=== PATIENT | male | born 1995 | race Caucasian/White ===

== ENCOUNTER 2021-01-20 15:52 | Emergency (ER) | payer SELFPAY ==
[2021-01-20 17:36] VITALS: BP 145/68; PULSE 61; RESP 18; TEMP 36.8; O2SAT 99; BMI 23.2
[2021-01-20 20:43] LABS: Add Urine Microscopic? NO; Charge for UA Resulting for Rev
[2021-01-20 20:49] LABS: Bilirubin Urine Neg (Negative); Blood Urine Neg (Negative); Glucose Urine UA Norm (Normal); Ketones Urine Negative (Negative); Leukocyte Esterase Urine Negative (Negative); Nitrate Urine Negative (Negative); Protein Urine Neg (Negative); Urine Appearance Clear (CLEAR); Urine Color Yellow (Yellow); Urobilinogen Urine Norm (Negative); pH Urine 5 (5-7)
[2021-01-20 21:00] LABS: Basophils # 0.1 10^3/uL (0.0-0.1); Basophils % 0.7 %; Eosinophils # 0.2 10^3/uL (0.0-0.8); Eosinophils % 2.1 %; Hematocrit 43.8 % (42.0-52.0); Hemoglobin 14.1 g/dL (11.7-16.6); Lymphocytes # 3.9 10^3/uL (0.8-4.8); Lymphocytes % 38.3 %; Mean Corpuscular HGB Conc 32.2 g/dL (30.0-36.0); Mean Corpuscular Hemoglobin 31.8 pg (28.0-34.0); Mean Corpuscular Volume 98.6 fL (80-94); Mean Platelet Volume 10.4 fL (7.4-10.4); Monocytes # 0.5 10^3/uL (0.2-0.9); Monocytes % 5.2 %; Neutrophils # 5.38 10^3/uL (1.8-7.7); Neutrophils % 53.4 %; Nucleated Red Blood Cells % 0 %; Platelet Count 281 10^3/cmm (130-400); Red Blood Count 4.44 10^6/uL (4.1-5.3); White Blood Count 10.1 10^3/uL (4.0-10.0)
[2021-01-20 21:19] LABS: Alanine Aminotransferase 12 U/L (0-41); Albumin Level 4.6 g/dL (3.5-5.2); Alkaline Phosphatase 92 IU/L (40-130); Anion Gap 15.2 (5-19); Aspartate Amino Transferase 18 U/L (0-40); Blood Urea Nitrogen 7 mg/dL (6-20); Carbon Dioxide 25 mmol/L (22-29); Chloride 106 mmol/L (98-107); Creatine Phosphokinase 180 U/L (39-308); Globulin 2.4 g/dL (1.3-4.6); Glomerular Filtration Rate 116.9 mL/min (90-130); Glucose 138 mg/dL (65-115); Osmolality Calculated 294 mOsm/kg (285-295); Potassium 4.2 mmol/L (3.5-5.1); Sodium 142 mmol/L (136-145); Total Bilirubin 0.2 mg/dL (0.15-1.2)
--- NOTE | 2021-01-20 21:46 | ED_ITS ---
HPI - General Adult General: Chief complaint: Back Pain/Injury Stated complaint: BACK PAIN, VARYING TEMP, OVERHEATED YESTERDAY Time Seen by Provider: 01/20/21 21:10 Source: patient Mode of arrival: ambulatory Limitations: no limitations History of Present Illness: HPI narrative: Patient is a 25-year-old male who presents to ED today with his significant other for concerns of possible heat exhaustion. Patient tells me they were working outside in the heat all day yesterday and today moving. He states they were lifting heavy things. He states since that time he has felt very weak and fatigued. He is having pain to the left lower back. He feels like the muscle is spasming. He also tells me he had an episode earlier today when he was on the couch and his upper extremities drawing up . Denies any seizure like activity. He reports that has resolved and he hasn't had any further issues with contractures since. Onset (ago): hour(s) Associated symptoms: Deny chest pain, dyspnea, headache(s), nausea, rash, palpitations, syncope or vomiting Treatments prior to arrival: none Review of Systems Const: Reports: fatigue; Denies: fever(s), chills, body aches, change in appetite, change in weight or night sweats Eyes: Denies: change in vision, blurry vision, photophobia, floaters or seeing flashes ENMT: Denies: throat pain, odynophagia or nasal discharge Card: Denies: chest pain, palpitations, irregular heart rhythm, edema, swelling of feet/ankles, lightheadedness, syncope, pre-syncope or dyspnea on exertion Resp: Denies: dyspnea GI: Denies: abdominal pain, nausea, vomiting or diarrhea : Denies: flank pain, dysuria or hematuria Musc: Reports: back pain; Denies: neck pain, extremity pain, extremity swelling, joint pain or joint swelling Skin/Breast: Denies: rash Neuro: Reports: other (extremity contractures-now resolved ); Denies: headache(s), numbness in extremities, weakness in extremities, sensory changes or dizziness Physical Exam Const: COMMON NORMALS: no acute distress, average body habitus, patient oriented x3, no limitations, healthy appearing, alert and well nourished GENERAL APPEARANCE: cooperative ORIENTATION/CONSCIOUSNESS: Yes awake, Yes oriented to person, Yes oriented to place and Yes oriented to time HENMT: COMMON NORMALS: normocephalic and atraumatic HEAD & SCALP: normocephalic and atraumatic Resp: COMMON NORMALS: normal respiratory effort and clear to auscultation bilaterally AUSCULTATION: clear to auscultation bilaterally Cardio: COMMON NORMALS: regular rate and regular rhythm RATE: regular rate RHYTHM: regular rhythm Back/Pelvis: BACK IMAGE (MALE): 1. TTP/muscle spasm Extremity: COMMON NORMALS: normal to inspection, full ROM, no clubbing, cyanosis or edema, no calf tenderness and no pedal edema GENERAL: Yes normal exam except as noted Neuro: MARIBELL COMA SCALE: document GCS findings Maribell coma scale eye opening: Spontaneous [place] coma scale verbal response: Orientated [place] coma scale motor response: Obey commands Maribell coma scale total score: 15 COMMON NORMALS: patient oriented x3, CN's II-XII intact bilaterally, moves all extremities, no focal motor deficits, no sensory deficits noted and gait normal SENSORIUM/ORIENTATION: Yes alert, Yes oriented to person, Yes oriented to place and Yes oriented to time Skin: COMMON NORMALS: no rashes or lesions noted GENERAL SKIN EXAM: no rashes or lesions noted Course Vital Signs: Vital signs: Vital Signs Temperature 98.2 F 01/20/21 17:36 Pulse Rate 81 01/20/21 21:55 Respiratory Rate 18 01/20/21 21:55 Blood Pressure 119/73 01/20/21 21:55 Pulse Oximetry 93 01/20/21 21:55 MDM - General Adult MDM Narrative: Medical decision making narrative: Patient clinically appears well. His vital signs are stable. Patient's labs including CBC, CMP, CPK, UA are unremarkable. Patient will be treated for his back spasm/back strain most likely from lifting. Recommend rest and pushing fluids for heat exhaustion/fatigue. Return to ED precautions given. Lab Data: Labs: Lab Results 01/20/21 01/20/21 01/20/21 Range/Units 20:26 20:26 20:38 WBC 10.1 H (4.0-10.0) 10^3/ uL RBC 4.44 (4.1-5.3) 10^6/u L Hgb 14.1 (11.7-16.6) g/dL Hct 43.8 (42.0-52.0) % MCV 98.6 H (80-94) fL MCH 31.8 (28.0-34.0) pg MCHC 32.2 (30.0-36.0) g/dL RDW 12.0 L (12.1-15.1) % Plt Count 281 (130-400) 10^3/c mm MPV 10.4 (7.4-10.4) fL Neut % (Auto) 53.4 % Lymph % (Auto) 38.3 % [place] % (Auto) 5.2 % Eos % (Auto) 2.1 % Baso % (Auto) 0.7 % Neut # (Auto) 5.38 (1.8-7.7) 10^3/u L Lymph # (Auto) 3.9 (0.8-4.8) 10^3/u L [place] # (Auto) 0.5 (0.2-0.9) 10^3/u L Eos # (Auto) 0.2 (0.0-0.8) 10^3/u L Baso # (Auto) 0.1 (0.0-0.1) 10^3/u L Nucleated RBC % (a uto) 0 % Nucleated RBCs # 0.0 /100WBC Sodium 142 (136-145) mmol/L Potassium 4.2 (3.5-5.1) mmol/L Chloride 106 (98-107) mmol/L Carbon Dioxide 25 (22-29) mmol/L Anion Gap 15.2 (5-19) BUN 7 (6-20) mg/dL Creatinine 0.8 (0.7-1.2) mg/dL GFR Calculation 116.9 (90-130) mL/min Glucose 138 H (65-115) mg/dL Calculated Osmolal ity 294 (285-295) mOsm/k g Calcium 9.0 (8.5-10.5) mg/dL Total Bilirubin 0.2 (0.15-1.2) mg/dL AST 18 (0-40) U/L ALT 12 (0-41) U/L Alkaline Phosphata se 92 (40-130) IU/L Creatine Kinase 180 (39-308) U/L Total Protein 7.0 (6.6-8.7) g/dL Albumin 4.6 (3.5-5.2) g/dL Globulin 2.4 (1.3-4.6) g/dL Urine Color Yellow (Yellow) Urine Appearance Clear (CLEAR) Urine pH 5 (5-7) Ur Specific Gravit y 1.020 (1.005-1.030) Urine Protein Neg (Negative) Urine Glucose (UA) Norm (Normal) Urine Ketones Negative (Negative) Urine Blood Neg (Negative) Urine Nitrate Negative (Negative) Urine Bilirubin Neg (Negative) Urine Urobilinogen Norm (Negative) mg/dL Ur Leukocyte Mrailynn ase Negative (Negative) Discharge Plan Discharge Patient Disposition: Home Clinical Impression: Back muscle spasm Heat exhaustion Qualifiers: Encounter type: initial encounter Qualified Code(s): T67.5XXA - Heat exhaustion, unspecified, initial encounter Condition: Stable Prescriptions: New cyclobenzaprine 10 mg tablet 10 mg PO TID Qty: 14 RF: 0 Discharge Orders: Discharge ED (Routine); Ordered 01/20/21 Ordered By: Concepcion Anglin Patient Instructions: Heat Cramps - Adult, Muscle Spasm (ED), Fatigue (ED), Opioid Safety Coding Level of Care Code ED Barley Steeper for Darryl Faye
[2021-01-20 21:55] VITALS: BP 119/73; PULSE 81; RESP 18; O2SAT 93
== END 2021-01-20 21:56 | disposition home or self-care (01) ==
PROVIDERS: Emergency Provider Physician Assistant
DX: T67.5XXA Heat exhaustion, unspecified, initial encounter (principal); M62.830 Muscle spasm of back
CPT/HCPCS: 80053; 81003; 82550; 85025; 99282

== ENCOUNTER 2023-11-10 09:42 | Emergency (ER) | payer SELFPAY ==
[2023-11-10 09:53] VITALS: BP 128/83; PULSE 92; RESP 22; TEMP 36.8; O2SAT 100
--- NOTE | 2023-11-10 09:55 | ED_ITS ---
HPI - Abdominal Pain 2 General: Chief Complaint: Abdominal Pain Stated Complaint: abd pain, sent by [facility] Time Seen by Provider: 11/10/23 09:50 Source: patient Mode of arrival: wheelchair Limitations: no limitations History of Present Illness: Patient is a 28-year-old male who presents to ED today along with his significant other for complaints of severe abdominal pain. Patient tells me last week while working at the [employer] he believes he had a heat stroke where he had an episode of dizziness and trouble breathing. He states I have not been right since . He states since then he has had progressively worsening abdominal pains over the past week-significantly worse over the past 72 hours accompanied by repetitive episodes of nausea and vomiting. He states he has not had much as far as bowel movements but admittedly has not ate much. He is still passing gas. No previous abdominal surgeries. He does report subjective fevers. Denies alcohol use stating he has not drank in 3 to 4 months-prior to this he was drinking daily. He does admit to marijuana use. MD elicited complaint: abdominal pain Pertinent past history: none Onset (ago): day(s) Pain Consistency: constant Severity: severe Pain scale (0-10): 10 Quality: stabbing and sharp Radiation: none Migration to: no migration Exacerbating factors: nothing Relieving factors: nothing Associated Symptoms: Reports fever(s) (subjective), nausea and vomiting; Denies chills, diarrhea, dysuria, hematochezia, hematuria, hematemesis and melena Review of Systems 2 Const: Reports: fever(s) (subjective) and night sweats; Denies: chills, body aches, fatigue or malaise Card: Denies: chest pain Resp: Denies: dyspnea GI: Reports: abdominal pain, nausea and vomiting; Denies: hematemesis, diarrhea, pain on defecation, rectal pain, hematochezia, melena or white/light colored stool : Denies: flank pain, difficulty urinating, dysuria or hematuria Musc: Denies: neck pain, back pain, extremity pain or joint pain Skin/Breast: Denies: rash Neuro: Denies: headache(s), numbness in extremities, weakness in extremities, sensory changes or dizziness Physical Exam 2 Const: COMMON NORMALS: average body habitus, patient oriented x3, no limitations, healthy appearing, alert and well nourished GENERAL APPEARANCE: cooperative and in distress (tearful, holding abdomen) HENMT: COMMON NORMALS: normocephalic and atraumatic HEAD & SCALP: normal to inspection, normocephalic and atraumatic FACE & SINUS: normal facial exam Eye: COMMON NORMALS: no scleral icterus Resp: COMMON NORMALS: normal respiratory effort and clear to auscultation bilaterally AUSCULTATION: clear to auscultation bilaterally Cardio: COMMON NORMALS: regular rate and regular rhythm RATE: regular rate RHYTHM: regular rhythm GI: COMMON NORMALS: Normal to inspection, nondistended, normoactive bowel sounds present, No hepatosplenomegaly present, no masses and no bruits I NSPECTION: Yes normal to inspection AUSCULTATION: Yes normoactive bowel sounds PALPATION: Yes Tenderness to palpation present (GI) (diffusely), Yes Guarding due to palpation present (GI), Yes Rigid due to palpation, Yes No hepatosplenomegaly present and Yes Other GI palpation findings present (negative heel tap, - rovsing's sign) : COMMON NORMALS: Yes no CVA tenderness BLADDER/KIDNEY EXAM: Yes no CVA tenderness Back/Pelvis: COMMON NORMALS: no CVA tenderness and thoracic and lumbar spine normal to inspection Extremity: GENERAL: Yes normal exam except as noted Neuro: MARIBELL COMA SCALE: document GCS findings Maribell coma scale eye opening: Spontaneous [place] coma scale verbal response: Orientated [place] coma scale motor response: Obey commands Maribell coma scale total score: 15 COMMON NORMALS: patient oriented x3, moves all extremities, no focal motor deficits and no sensory deficits noted SENSORIUM/ORIENTATION: Yes alert Skin: COMMON NORMALS: no rashes or lesions noted GENERAL SKIN EXAM: no rashes or lesions noted Course 2 Vital Signs: Vital signs: Vital Signs Temperature 98.2 F 11/10/23 09:53 Pulse Rate 74 11/10/23 10:53 Respiratory Rate 18 11/10/23 10:10 Blood Pressure 122/65 11/10/23 10:53 Pulse Oximetry 100 11/10/23 10:53 Oxygen Delivery Me thod Room Air 11/10/23 09:53 MDM - Abdominal Pain Medical Decision Making Patient's vital signs are normal. His blood work overall is unremarkable. He does have a mild white count of 15.25 most likely reactive from nausea and vomiting over the past 3 days. Chemistry overall is nonactionable. UA showing 2+ ketones. He was given a liter of fluids here. CT scan is essentially unremarkable. There is constipation. He does have a small amount of increased fluid in his distal small bowel. No obstruction. He is a habitual marijuana user. We did discuss the possibility of a hyperemesis cannabis syndrome. Patient was given medications here including Ativan and Haldol and upon reassessment he appears much improved in no acute distress. His abdomen reportedly feels much better. He states he is craving a cheeseburger. Patient will be allowed discharge. Will give prescriptions for Zofran and Ativan at home. Return to ED precautions given. Otherwise I would like him to follow-up with primary care. Differential Diagnosis Likely abdominal pain, acute appendicitis, diverticulitis, gastroenteritis, pancreatitis and small bowel obstruction Medical Records I reviewed the patient's medical records. Lab Data I reviewed the patient's lab results. 11/10/23 10:14 11/10/23 10:14 Labs/Radiology: Laboratory Results WBC 15.25 10^3/uL (3.29-11.43) H 11/10/23 10:14 RBC 4.95 10^6/uL (3.85-5.65) 11/10/23 10:14 Hgb 15.00 g/dL (11.27-16.99) 11/10/23 10:14 Hct 44.9 % (37-53) 11/10/23 10:14 MCV 90.7 fl (82-101) 11/10/23 10:14 MCH 30.3 pg (27-33) 11/10/23 10:14 MCHC 33.4 g/dL (30-55) 11/10/23 10:14 RDW 13.0 % (12.1-15.1) 11/10/23 10:14 Plt Count 446 10^3/cmm (157-399) H 11/10/23 10:14 MPV 8.9 fL (7.4-10.4) 11/10/23 10:14 Neut % (Auto) 77.9 % 11/10/23 10:14 Lymph % (Auto) 14.6 % 11/10/23 10:14 [place] % (Auto) 6.4 % 11/10/23 10:14 Eos % (Auto) 0.3 % 11/10/23 10:14 Baso % (Auto) 0.4 % 11/10/23 10:14 Neut # (Auto) 11.88 10^3/uL (1.8-7.7) H 11/10/23 10:14 Lymph # (Auto) 2.2 10^3/uL (0.8-4.8) 11/10/23 10:14 [place] # (Auto) 1.0 10^3/uL (0.2-0.9) H 11/10/23 10:14 Eos # (Auto) 0.0 10^3/uL (0.0-0.8) 11/10/23 10:14 Baso # (Auto) 0.1 10^3/uL (0.0-0.1) 11/10/23 10:14 Nucleated RBC % (auto) 0 % 11/10/23 10:14 Nucleated RBCs # 0.0 /100WBC 11/10/23 10:14 Sodium 135 mmol/L (136-145) L 11/10/23 10:14 Potassium 3.8 mmol/L (3.5-5.1) 11/10/23 10:14 Chloride 92 mmol/L (98-107) L 11/10/23 10:14 Carbon Dioxide 30 mmol/L (22-29) H 11/10/23 10:14 Anion Gap 16.8 (5-19) 11/10/23 10:14 BUN 13 mg/dL (6-20) 11/10/23 10:14 Creatinine 0.8 mg/dL (0.7-1.2) 11/10/23 10:14 GFR Calculation 114.3 mL/min (90-130) 11/10/23 10:14 Glucose 111 mg/dL (65-115) 11/10/23 10:14 Calculated Osmolality 281 mOsm/kg (285-295) L 11/10/23 10:14 Calcium 9.6 mg/dL (8.5-10.5) 11/10/23 10:14 Total Bilirubin 0.4 mg/dL (0.15-1.2) 11/10/23 10:14 AST 13 U/L (0-40) 11/10/23 10:14 ALT 9 U/L (0-41) 11/10/23 10:14 Alkaline Phosphatase 120 U/L (40-130) 11/10/23 10:14 Total Protein 8.0 g/dL (6.6-8.7) 11/10/23 10:14 Albumin 4.3 g/dL (3.5-5.2) 11/10/23 10:14 Globulin 3.7 g/dL (1.3-4.6) 11/10/23 10:14 Lipase 30 U/L (13-60) 11/10/23 10:14 Urine Color Yellow (Yellow) 11/10/23 10:50 Urine Appearance Clear (CLEAR) 11/10/23 10:50 Urine pH 7 (5-7) 11/10/23 10:50 Ur Specific [place] 1.010 (1.005-1.030) 11/10/23 10:50 Urine Protein Neg (Negative) 11/10/23 10:50 Urine Glucose (UA) Norm (Normal) 11/10/23 10:50 Urine Ketones 2+ (Negative) H 11/10/23 10:50 Urine Blood Neg (Negative) 11/10/23 10:50 Urine Nitrate Negative (Negative) 11/10/23 10:50 Urine Bilirubin Neg (Negative) 11/10/23 10:50 Urine Urobilinogen Neg mg/dL (Negative) 11/10/23 10:50 Ur Leukocyte Esterase Negative (Negative) 11/10/23 10:50 All radiology interpretation(s) finalized by discharge Discharge Plan Discharge Patient Disposition: Home Clinical Impression: Abdominal pain Qualifiers: Abdominal location: generalized Qualified Code(s): R10.84 - Generalized abdominal pain Condition: Stable Prescriptions: New ondansetron 4 mg tablet,disintegrating 4 mg PO Q8H PRN (Reason: nausea and vomiting) Qty: 14 0RF Ativan 1 mg tablet 1 mg sublingual Q8H PRN (Reason: nausea and vomiting) Qty: 9 0RF Discharge Orders: Discharge ED (Routine); Ordered 11/10/23 Ordered By: Concepcion Anglin Referrals: Silvia Condon FNP [Primary Care Provider] - Patient Instructions: Abdominal Pain (ED) Activity Restrictions/Additional Instructions: As we discussed your blood work and CT imaging today overall is not emergent. We did not find an exact etiology for your discomfort. We did speak about possible marijuana use being the cause. I have given you prescriptions for Zofran and Ativan both of which can be used for nausea and vomiting if it returns and is severe. You may return to the emergency department for continued severe abdominal pain, intractable nausea and vomiting, fevers, or any other concerns you may have. Otherwise please follow-up with primary care next week. Coding Level of Care Code ED Blending Line Attendant for Darryl Faye
--- NOTE | 2023-11-10 10:01 | CT_ITS ---
WS: [id number] CT ABDOMEN AND PELVIS WITH CONTRAST HISTORY: severe abdominal pain, N/V TECHNIQUE: Imaging performed of the abdomen and pelvis with IV contrast. Single phase imaging of the abdomen. Coronal and sagittal reformats are submitted. All CT scans at [facility] use at [address] one of these dose optimization techniques: automated exposure control; mA and/or kV adjustment per patient size (includes targeted exams where dose is matched to clinical indication); or iterative re construction. IV CONTRAST: Omnipaque 350; 100 mL IV. Oral contrast: No DLP: 346.43 mGy.cm COMPARISON: None available. Lower thorax: Lung bases are clear. Heart is normal size. No hiatal hernia. Liver/biliary system: Focal fatty sparing adjacent to the falciform ligament. Otherwise liver is norm al. Gallbladder: Normal. No gallstones or wall thickening. No pericholecystic fluid. Pancreas: Normal size pancreas and pancreatic duct. No adjacent inflammation. Spleen: Normal size spleen. No mass or infarct. Adrenal glands: Normal. Right kidney: Normal. Left kidney: Normal. Aorta: Normal. Lymphadenopathy: None. Free fluid: None. GI tract: Nondistended stomach. No small bowel obstruction. There is slight increased fluid in the di stal small bowel but not obstructed. The appendix is identified and normal and contains air. No ische bridgette changes in the GI tract. There is moderate diffuse constipation. Abdominal wall: Tiny umbilical hernia. Pelvis: No free fluid or adenopathy within the pelvis. Bones: Unremarkable. IMPRESSION: 1. Normal appendix. 2. Moderate constipation. 3. Small amount of increased fluid in the distal small bowel but no obstructive pattern at this time . 4. No ascites or adenopathy.
[2023-11-10 10:10] VITALS: RESP 18; O2SAT 100
[2023-11-10] MEDS: ondansetron 2 mg/ML SDV 2 mL 4 MG IVP (10:10)
[2023-11-10] MEDS: morphine 4 mg/mL SDV 1 mL IVP (10:10)
[2023-11-10] MEDS: sodium chloride 0.9% 1,000 ML 999 ML IV (10:13)
[2023-11-10 10:25] LABS: Basophils # 0.1 10^3/uL (0.0-0.1); Basophils % 0.4 %; Eosinophils % 0.3 %; Hematocrit 44.9 % (37-53); Lymphocytes # 2.2 10^3/uL (0.8-4.8); Lymphocytes % 14.6 %; Mean Corpuscular HGB Conc 33.4 g/dL (30-55); Mean Corpuscular Hemoglobin 30.3 pg (27-33); Mean Corpuscular Volume 90.7 fl (82-101); Mean Platelet Volume 8.9 fL (7.4-10.4); Monocytes % 6.4 %; Neutrophils # 11.88 10^3/uL (1.8-7.7); Neutrophils % 77.9 %; Nucleated Red Blood Cells % 0 %; Platelet Count 446 10^3/cmm (157-399); Red Blood Count 4.95 10^6/uL (3.85-5.65); White Blood Count 15.25 10^3/uL (3.29-11.43)
[2023-11-10] MEDS: iohexol 350 mg/mL 500 mL Btl (per mL) IV (10:33)
[2023-11-10 10:46] LABS: Alanine Aminotransferase 9 U/L (0-41); Albumin Level 4.3 g/dL (3.5-5.2); Alkaline Phosphatase 120 U/L (40-130); Anion Gap 16.8 (5-19); Aspartate Amino Transferase 13 U/L (0-40); Blood Urea Nitrogen 13 mg/dL (6-20); Calcium 9.6 mg/dL (8.5-10.5); Carbon Dioxide 30 mmol/L (22-29); Chloride 92 mmol/L (98-107); Creatinine Clr Calc Pharmacy 125.2404; Globulin 3.7 g/dL (1.3-4.6); Glomerular Filtration Rate 114.3 mL/min (90-130); Glucose 111 mg/dL (65-115); Lipase 30 U/L (13-60); Osmolality Calculated 281 mOsm/kg (285-295); Potassium 3.8 mmol/L (3.5-5.1); Sodium 135 mmol/L (136-145); Total Bilirubin 0.4 mg/dL (0.15-1.2)
[2023-11-10 10:53] VITALS: BP 122/65; PULSE 74; O2SAT 100
[2023-11-10 10:58] LABS: Add Urine Microscopic? NO; Charge for UA Resulting for Rev
[2023-11-10] MEDS: LORazepam 2 mg/mL INJ 10 mL MDV 1 MG IVP (10:59)
[2023-11-10] MEDS: haloperidol inj 5 mg/mL INJ 1 mL 2.5 MG IVP (11:00)
[2023-11-10 11:02] LABS: Bilirubin Urine Neg (Negative); Blood Urine Neg (Negative); Glucose Urine UA Norm (Normal); Ketones Urine 2+ (Negative); Leukocyte Esterase Urine Negative (Negative); Nitrate Urine Negative (Negative); Protein Urine Neg (Negative); Urine Appearance Clear (CLEAR); Urine Color Yellow (Yellow); Urobilinogen Urine Neg (Negative); pH Urine 7 (5-7)
[2023-11-10 11:34] VITALS: BP 112/54; PULSE 72; O2SAT 96
== END 2023-11-10 11:36 | disposition home or self-care (01) ==
PROVIDERS: Emergency Provider Physician Assistant; PCP Nurse Practitioner Family
DX: R10.84 Generalized abdominal pain (principal)
CPT/HCPCS: 36415; 74177; 80053; 81000; 81003; 83690; 85025; 96361; 96374; 96375; 99285; J1630; J2060; J2270; J2405; J7030; Q9967

== ENCOUNTER 2024-01-22 13:47 | Emergency (ER) | payer SELFPAY ==
[2024-01-22 14:19] VITALS: BP 132/86; PULSE 71; RESP 14; TEMP 36.7; O2SAT 99
[2024-01-22 14:28] VITALS: BP 117/61; PULSE 69; RESP 16; O2SAT 99
[2024-01-22 15:52] LABS: Rapid Strep A Test Negative (Negative)
--- NOTE | 2024-01-22 18:18 | XRR_ITS ---
PROCEDURE INFORMATION: Exam: XR Chest Exam date and time: 01/22/2024 6:36 PM Age: 28 years old Clinical indication: Dyspnea; Additional info: Cp/sob/dizzy TECHNIQUE: Imaging protocol: Radiologic exam of the chest. Views: 1 view. COMPARISON: CT abdomen pelvis w con* [id number] 11/10/2023 10:33 AM FINDINGS: Lungs: Unremarkable. No consolidation. Pleural spaces: Unremarkable. No pleural effusion. No pneumothorax. Heart/Mediastinum: Unremarkable. No cardiomegaly. Bones/joints: Unremarkable. XR/XR chest 1V portable [id number] IMPRESSION: No acute findings.
--- NOTE | 2024-01-22 18:18 | ECG_ITS ---
[facility] Test Date: 2024-02-01 Pat Name: Steven Casey Department: Room: Gender: Male Director Of Email Marketing: : 1995 Requested By: Phillip Cook Order Number: [id number] Uma MD: Rodolfo Oconnell M.D. Measurements Intervals [place] Rate: 64 P: 30 OK: 114 QRS: 84 QRSD: 101 T: 71 QT: 442 QTc: 458 Interpretive Statements SINUS RHYTHM WITH SHORT OK INTERVAL ST ELEVATION, PROBABLY EARLY REPOLARIZATION [ST ELEVATION WITH NORMALLY INFLECTED T-WAVE] No previous ECG available for comparison Electronically Signed On 01-23-2024 9:02:19 CDT by Rodolfo Oconnell M.D. [email or web address]
--- NOTE | 2024-01-22 18:20 | W.ED.GIBLEED ---
HPI - GI Bleed General: Chief complaint: GI Bleed Stated complaint: light headed, sore throat Time Seen by Provider: 01/22/24 18:02 Source: patient Mode of arrival: ambulatory Limitations: no limitations History of Present Illness: Patient is a 28-year-old male presenting to the emergency department complaining of blood in his stool over the past couple weeks. He states he has been having issues with hemorrhoids for which she has been taking Preparation H, but notes that today and set of blood on the toilet paper there was bright red blood on his stool. He said this freaked him out and at work he had sudden onset of dizziness, chest pain, and shortness of breath when worrying about the blood. He denies any pertinent past medical history, does state that he smokes marijuana regularly. He is denying any abdominal pain at this time. States that the symptoms today required him to go home as he was too fixated on them. He does note that he feels dehydrated and did get weak at work. He works in a [employer] and has been working outside in hot temperatures. He also arrives stating he was having sore throat, however this was associated with his chest pain and shortness of breath. Rapid strep in triage was negative. No other symptoms or concerning historical factors at this time note. complaint: blood on toilet paper and blood streaked stool Onset (ago): week(s) Pain Consistency: constant Severity: mild Relieving factors: none Exacerbating factors: none Associated symptoms: Denies abdominal pain, chills, fever(s), headache(s), nausea, rash or vomiting Treatments Prior to Arrival: suppositories (Preparation H) Review of Systems General: Reports: 10 or more systems reviewed and unremarkable except in HPI and below Const: Denies: fever(s), chills, change in appetite, change in weight or diaphoresis ENMT: Reports: throat pain; Denies: hoarseness Card: Reports: chest pain; Denies: palpitations or lightheadedness Resp: Reports: dyspnea; Denies: productive cough or wheezing GI: Reports: rectal pain and hematochezia; Denies: abdominal pain, nausea, vomiting, diarrhea, constipation, bloating or change in stool character : Denies: flank pain, difficulty urinating, dysuria, urinary frequency or urinary urgency Musc: Reports: muscle weakness; Denies: neck pain or back pain Skin/Breast: Denies: rash or new lesions Neuro: Reports: dizziness; Denies: headache(s) Physical Exam Const: COMMON NORMALS: no acute distress, average body habitus, patient oriented x3, no limitations, healthy appearing, alert and well nourished GENERAL APPEARANCE: cooperative and anxious ORIENTATION/CONSCIOUSNESS: Yes awake HENMT: COMMON NORMALS: normocephalic, atraumatic, hearing grossly normal bilaterally, external ears normal, Normal external nose present, Normal nasal mucous membranes and turbinates present and moist oral mucous membranes HEAD & SCALP: normocephalic and atraumatic NOSE: Normal external nose present and Normal nasal mucous membranes and turbinates present EXTERNAL EAR: Yes external ears normal THROAT: posterior oropharynx normal Eye: COMMON NORMALS: Equal, round and reactive pupils present, EOMs intact bilaterally, conjunctivae normal and normal visual pike by confrontation CONJUNCTIVA: Yes conjunctivae normal PUPIL: Yes Equal, round and reactive pupils present Neck/C-Spine: COMMON NORMALS: full ROM, supple, no meningeal signs and no JVD Chest: COMMONS NORMALS: normal inspection of the chest and normal palpation of entire chest wall Resp: COMMON NORMALS: normal respiratory effort, No retractions, No use of accessory muscles and clear to auscultation bilaterally AUSCULTATION: clear to auscultation bilaterally, no crackles, no rales, no rhonchi and no wheezes Cardio: COMMON NORMALS: no JVD, regular rate, regular rhythm, S1 normal heart sound present, S2 normal heart sound present, No gallops present (Cardio), No clicks present (Cardio), No murmurs present (Cardio), No rub (Cardio) and Peripheral pulses 2+ throughout PALPATION: abnormal PMI enlarged PMI RATE: regular rate RHYTHM: regular rhythm HEART SOUNDS: S1 normal heart sound present and S2 normal heart sound present PERIPHERAL PULSES: Peripheral pulses 2+ throughout GI: COMMON NORMALS: Normal to inspection, nondistended, normoactive bowel sounds present, Soft to palpation, non-tender, No hepatosplenomegaly present and no masses AUSCULTATION: Yes normoactive bowel sounds PALPATION: Yes Soft to palpation, No Guarding due to palpation present (GI), No Rigid due to palpation and Yes No hepatosplenomegaly present OTHER: Presence of external hemorrhoids. Tenderness to palpation of the rectal area. Guaiac negative stool. Extremity: COMMON NORMALS: normal to inspection and full ROM Neuro: COMMON NORMALS: patient oriented x3, moves all extremities, no focal motor deficits and no sensory deficits noted SENSORIUM/ORIENTATION: Yes alert MENINGEAL SIGNS: Yes no meningeal signs Psych: COMMON NORMALS: mental status grossly normal, cooperative and speech normal SPEECH: Yes normal speech Skin: COMMON NORMALS: no rashes or lesions noted GENERAL SKIN EXAM: no rashes or lesions noted Course Vital Signs: Vital signs: Vital Signs Temperature 98.1 F 01/22/24 14:19 Pulse Rate 74 01/22/24 20:30 Respiratory Rate 16 01/22/24 18:39 Blood Pressure 113/69 01/22/24 19:30 Pulse Oximetry 97 01/22/24 20:30 Oxygen Delivery Me thod Room Air 01/22/24 20:30 MDM - GI Bleed Medical Decision Making Patient presented for sore throat for the past 3 weeks, also complaining of bright red blood per rectum for the past couple weeks. He does report history of hemorrhoids which she has been taking Preparation H, states that blood in the toilet paper has now turned to blood-streaked stools. Bedside guaiac stool exam did not reveal any positive testing. He did appear extremely anxious on exam, and did state he had an episode of shortness of breath, dizziness, and chest pain beginning all of a sudden at work today, where he is working at a [employer]. Also reports he feels dehydrated and has been working outside heat. His CK was elevated over 300, he is started on fluids at this time. The rest of his examination was normal including normal baseline and repeat troponin, normal CBC and metabolic panel, and normal urinalysis. His EKG demonstrated sinus rhythm with rate of 64, no STEMI. This EKG was reviewed with Dr. Goyal, who agrees. In addition his chest x-ray did not demonstrate any acute findings, and his rapid strep was negative. Upon recheck and informing him of his normal labs, he states he really wants his neck imaged to make sure there is nothing going wrong. He is also given dose of viscous lidocaine and CT neck with contrast did not demonstrate any acute findings. Patient is a chronic smoker of cigarettes and marijuana, and I do believe that these are contributing to some endothelial damage to his throat versus other etiologies such as a viral pharyngitis. Because of this I would send in viscous lidocaine, however I did thoroughly instruct him to follow-up with a primary care provider for more long-term care and to discuss potential workup for anxiety/panic disorder. Due to his negative cardiovascular workup today here in the emergency department, I do believe his symptoms possibly related to a panic attack. In addition to this examination his rectal exam did demonstrate signs of external hemorrhoids, did instruct him to do more conservative therapy such as sitz bath's and continue taking hydrocortisone cream. For any further follow-up he will also discuss this with primary care who may refer him to GI. Patient is still anxious prior to discharge, however states he does feel relieved that his labs and imaging were all negative. No further workup necessary at this time and he will be discharged home. Strict return Precautions were given. Lab Data 01/22/24 17:38 01/22/24 17:38 Radiology Impressions Chest X-Ray 01/22/24 18:18 IMPRESSION: No acute findings. Neck CT 01/22/24 19:42 IMPRESSION: No acute findings. Laboratory Results WBC 7.56 10^3/uL (3.29-11.43) 01/22/24 17:38 RBC 4.22 10^6/uL (3.85-5.65) 01/22/24 17:38 Hgb 13.10 g/dL (11.27-16.99) 01/22/24 17:38 Hct 39.9 % (37-53) 01/22/24 17:38 MCV 94.5 fl (82-101) 01/22/24 17:38 MCH 31.0 pg (27-33) 01/22/24 17:38 MCHC 32.8 g/dL (30-55) 01/22/24 17:38 RDW 13.9 % (12.1-15.1) 01/22/24 17:38 Plt Count 350 10^3/cmm (157-399) 01/22/24 17:38 MPV 9.7 fL (7.4-10.4) 01/22/24 17:38 Neut % (Auto) 66.6 % 01/22/24 17:38 Lymph % (Auto) 22.2 % 01/22/24 17:38 [place] % (Auto) 7.0 % 01/22/24 17:38 Eos % (Auto) 3.2 % 01/22/24 17:38 Baso % (Auto) 0.7 % 01/22/24 17:38 Neut # (Auto) 5.04 10^3/uL (1.8-7.7) 01/22/24 17:38 Lymph # (Auto) 1.7 10^3/uL (0.8-4.8) 01/22/24 17:38 [place] # (Auto) 0.5 10^3/uL (0.2-0.9) 01/22/24 17:38 Eos # (Auto) 0.2 10^3/uL (0.0-0.8) 01/22/24 17:38 Baso # (Auto) 0.1 10^3/uL (0.0-0.1) 01/22/24 17:38 Nucleated RBC % (auto) 0 % 01/22/24 17:38 Nucleated RBCs # 0.0 /100WBC 01/22/24 17:38 Sodium 136 mmol/L (136-145) 01/22/24 17:38 Potassium 3.9 mmol/L (3.5-5.1) 01/22/24 17:38 Chloride 98 mmol/L (98-107) 01/22/24 17:38 Carbon Dioxide 26 mmol/L (22-29) 01/22/24 17:38 Anion Gap 15.9 (5-19) 01/22/24 17:38 BUN 14 mg/dL (6-20) 01/22/24 17:38 Creatinine 0.6 mg/dL (0.7-1.2) L 01/22/24 17:38 GFR Calculation 159.3 mL/min (90-130) H 01/22/24 17:38 Glucose 116 mg/dL (65-115) H 01/22/24 17:38 Calculated Osmolality 283 mOsm/kg (285-295) L 01/22/24 17:38 Calcium 9.5 mg/dL (8.5-10.5) 01/22/24 17:38 Total Bilirubin 0.6 mg/dL (0.15-1.2) 01/22/24 17:38 AST 31 U/L (0-40) 01/22/24 17:38 ALT 20 U/L (0-41) 01/22/24 17:38 Alkaline Phosphatase 104 U/L (40-130) 01/22/24 17:38 Creatine Kinase 337 U/L (39-308) H* 01/22/24 17:38 Troponin T Baseline < 6 ng/L (0-15) 01/22/24 17:38 Troponin T 120 Minute 6.00 ng/L (0-15) 01/22/24 20:05 Delta Troponin T 0.75838 ABS# (0-10) 01/22/24 20:05 Total Protein 7.7 g/dL (6.6-8.7) 01/22/24 17:38 Albumin 4.8 g/dL (3.5-5.2) 01/22/24 17:38 Globulin 2.9 g/dL (1.3-4.6) 01/22/24 17:38 Urine Color Yellow (Yellow) 01/22/24 18:54 Urine Appearance Clear (CLEAR) 01/22/24 18:54 Urine pH 6 (5-7) 01/22/24 18:54 Ur Specific [place] 1.010 (1.005-1.030) 01/22/24 18:54 Urine Protein Neg (Negative) 01/22/24 18:54 Urine Glucose (UA) Norm (Normal) 01/22/24 18:54 Urine Ketones Negative (Negative) 01/22/24 18:54 Urine Blood Neg (Negative) 01/22/24 18:54 Urine Nitrate Negative (Negative) 01/22/24 18:54 Urine Bilirubin Neg (Negative) 01/22/24 18:54 Urine Urobilinogen Norm mg/dL (Negative) 01/22/24 18:54 Ur Leukocyte Esterase Negative (Negative) 01/22/24 18:54 Group A Strep Rapid Negative (Negative) 01/22/24 15:33 All radiology interpretation(s) finalized by discharge Discharge Plan Discharge Patient Disposition: Home Clinical Impression: Hemorrhoids, Viral pharyngitis, Dehydration Condition: Stable Prescriptions: New Lidocaine Viscous 2 % solution 1 applic mucous membrane DAILY PRN (Reason: pain) Qty: 100 0RF No Action ondansetron 4 mg tablet,disintegrating 4 mg PO Q8H PRN (Reason: nausea and vomiting) Qty: 14 0RF Ativan 1 mg tablet 1 mg sublingual Q8H PRN (Reason: nausea and vomiting) Qty: 9 0RF Discharge Orders: Discharge ED (Routine); Ordered 01/22/24 Ordered By: Phillip Guidry Referrals: Silvia Condon FNP [Primary Care Provider] - Discharge Diet: Usual diet Discharge Activity: Increase activity as tolerated Patient Instructions: Hemorrhoids (ED), Dehydration (ED), Pharyngitis (ED), Sitz Bath Activity Restrictions/Additional Instructions: Please increase your fluid intake. Take viscous lidocaine for your sore throat. Tylenol and ibuprofen for pain relief. Please follow-up with primary care provider. Topical hydrocortisone [id number] for hemorrhoids. Return with any new or worsening. Coding Level of Care Code ED Lounge Car Attendant for Darryl Faye
[2024-01-22 18:31] LABS: Basophils # 0.1 10^3/uL (0.0-0.1); Basophils % 0.7 %; Eosinophils # 0.2 10^3/uL (0.0-0.8); Eosinophils % 3.2 %; Hematocrit 39.9 % (37-53); Lymphocytes # 1.7 10^3/uL (0.8-4.8); Lymphocytes % 22.2 %; Mean Corpuscular HGB Conc 32.8 g/dL (30-55); Mean Corpuscular Volume 94.5 fl (82-101); Mean Platelet Volume 9.7 fL (7.4-10.4); Monocytes # 0.5 10^3/uL (0.2-0.9); Neutrophils # 5.04 10^3/uL (1.8-7.7); Neutrophils % 66.6 %; Nucleated Red Blood Cells % 0 %; Platelet Count 350 10^3/cmm (157-399); Red Blood Count 4.22 10^6/uL (3.85-5.65); Red Cell Distribution Width 13.9 % (12.1-15.1); White Blood Count 7.56 10^3/uL (3.29-11.43)
[2024-01-22 18:39] VITALS: BP 124/65; PULSE 67; RESP 16; O2SAT 100
[2024-01-22 18:57] LABS: Troponin(5th) Baseline < 6 ng/L (0-15)
[2024-01-22 18:58] LABS: Alanine Aminotransferase 20 U/L (0-41); Albumin Level 4.8 g/dL (3.5-5.2); Alkaline Phosphatase 104 U/L (40-130); Blood Urea Nitrogen 14 mg/dL (6-20); Calcium 9.5 mg/dL (8.5-10.5); Carbon Dioxide 26 mmol/L (22-29); Chloride 98 mmol/L (98-107); Globulin 2.9 g/dL (1.3-4.6); Glomerular Filtration Rate 159.3 mL/min (90-130); Glucose 116 mg/dL (65-115); Osmolality Calculated 283 mOsm/kg (285-295); Sodium 136 mmol/L (136-145); Total Bilirubin 0.6 mg/dL (0.15-1.2); Total Protein 7.7 g/dL (6.6-8.7)
[2024-01-22 19:00] VITALS: BP 123/71; O2SAT 100
[2024-01-22 19:00] LABS: Anion Gap 15.9 (5-19); Aspartate Amino Transferase 31 U/L (0-40); Potassium 3.9 mmol/L (3.5-5.1)
[2024-01-22 19:09] LABS: Add Urine Microscopic? NO; Charge for UA Resulting for Rev
[2024-01-22 19:17] LABS: Bilirubin Urine Neg (Negative); Blood Urine Neg (Negative); Glucose Urine UA Norm (Normal); Ketones Urine Negative (Negative); Leukocyte Esterase Urine Negative (Negative); Nitrate Urine Negative (Negative); Protein Urine Neg (Negative); Urine Appearance Clear (CLEAR); Urine Color Yellow (Yellow); Urobilinogen Urine Norm (Negative); pH Urine 6 (5-7)
[2024-01-22 19:18] LABS: Creatine Phosphokinase 337 U/L (39-308)
[2024-01-22 19:30] VITALS: BP 113/69; PULSE 62; O2SAT 99
--- NOTE | 2024-01-22 19:42 | CTR_ITS ---
PROCEDURE INFORMATION: Exam: CT Neck With Contrast Exam date and time: 01/22/2024 8:18 PM Age: 28 years old Clinical indication: Other: Neck pain; Additional info: Neck pain/cant swallow TECHNIQUE: Imaging protocol: Computed tomography of the neck with contrast. Radiation optimization: All CT scans at this facility use at least one of these dose optimization techniques: automated exposure control; mA and/or kV adjustment per patient size (includes targeted exams where dose is matched to clinical indication); or iterative reconstruction. Contrast material: OMNI 350; Contrast volume: 100 ml; Contrast route: INTRAVENOUS (IV); COMPARISON: CR (CHEST, ) 01/22/2024 6:36 PM RADIATION DOSE METRICS: Total DLP (mGy-cm): 265.9 FINDINGS: Salivary glands: Normal. Glands are normal in size. Pharynx: Unremarkable. No significant tonsillar enlargement. Prevertebral and retropharyngeal spaces: Unremarkable. Larynx: Unremarkable. Epiglottis is normal. Thyroid: Normal. No enlarged or calcified nodules. Trachea: Visualized trachea is unremarkable. Lungs: Unremarkable as visualized. Lymph nodes: Unremarkable. No lymphadenopathy. Bones/joints: Unremarkable. No acute fracture. Soft tissues: Unremarkable. No significant soft tissue swelling. CT/CT neck w con* [id number] IMPRESSION: No acute findings.
[2024-01-22] MEDS: sodium chloride 0.9% 1,000 ML 999 ML IV (19:54)
[2024-01-22] MEDS: iohexol 350 mg/mL 500 mL Btl (per mL) IV (20:20)
[2024-01-22 20:30] VITALS: PULSE 74; O2SAT 97
[2024-01-22 20:37] LABS: Troponin 5 2HR Delta 0.00001 ABS# (0-10)
[2024-01-22] MEDS: lidocaine 2% viscous 15 mL UDC MUCOUS MEM (20:55)
== END 2024-01-22 21:06 | disposition home or self-care (01) ==
PROVIDERS: Emergency Medicine; Emergency Provider Physician Assistant; PCP Nurse Practitioner Family
DX: K64.9 Unspecified hemorrhoids (principal); J02.8 Acute pharyngitis due to other specified organisms; E86.0 Dehydration
CPT/HCPCS: 36415; 70491; 71045; 80053; 81003; 82550; 84484; 85025; 87081; 87880; 93005; 96360; 99285; J7030; Q9967

== ENCOUNTER 2025-03-06 09:54 | Emergency (ER) | payer OTHER, SELFPAY ==
[2025-03-06 10:15] VITALS: BP 119/67; PULSE 80; RESP 14; TEMP 36.8; O2SAT 99; BMI 22.8
--- NOTE | 2025-03-06 10:47 | ED_ITS ---
HPI - Extremity Problem General: Chief complaint: Extremity Injury, Upper Stated complaint: Kamaljit stokesarm 03/05 Time Seen by Provider: 03/06/25 10:44 History of Present Illness: This is a healthy 30-year-old male who presents emergency room with left forearm pain. 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 Bruising has spread some. He is having some pain down his forearm. He had a wrap on his arm prior to arrival. No history of bleeding disorder. No other bleeding issues or bruising issues. The pattern of the bruises definitely in the pattern of holding lumbar. Related Data Previous Rx's ?Medication ?Instructions ?Recorded lorazepam 1 mg tablet (Ativan) 1 mg sublingual Q8H PRN nausea and 11/10/23 vomiting #9 tabs ondansetron 4 mg disintegrating 4 mg PO Q8H PRN nausea and 11/10/23 tablet vomiting #14 tabs lidocaine HCl 2 % mucosal solution 1 applic mucous mem brane DAILY PRN 01/22/24 (Lidocaine Viscous) pain #100 mL diclofenac sodium 50 mg 50 mg PO BID PRN pain #14 ta bs 03/06/25 tablet,delayed release tramadol 50 mg tablet 50 mg PO Q8H PRN pain #10 ta bs 03/06/25 Allergies Allergy/AdvReac Type Severity Reaction Status Date / Time No Known Allergies Allergy Verified 01/22/24 14:24 Review of Systems Narrative: Constitutional symptoms: Negative except as documented in HPI. Skin symptoms: Negative except as documented in HPI. Eye symptoms: Negative except as documented in HPI. ENMT symptoms: Negative except as documented in HPI. Respiratory symptoms: Negative except as documented in HPI. Cardiovascular symptoms: Negative except as documented in HPI. Gastrointestinal symptoms: Negative except as documented in HPI. Genitourinary symptoms: Negative except as documented in HPI. Musculoskeletal symptoms: Negative except as documented in HPI. Neurologic symptoms: Negative except as documented in HPI. Psychiatric symptoms: Negative except as documented in HPI. Endocrine symptoms: Negative except as documented in HPI. Physical Exam Narrative: EXAM NARRATIVE: General: Alert, no acute distress. Skin: warm and dry. There is a bruise on the forearm proximally. This seems to be in the pattern of carrying lumber. Does appear at least a day or 2 old. Patient is neurovascularly intact. Head: Normocephalic Neck: Trachea midline Eye: Extraocular movements are intact. Ears, nose, mouth and throat: Oral mucosa moist Respiratory: Respirations are non-labored Musculoskeletal: Normal ROM Gastrointestinal: Abdomen does not appear distended Neurological: Alert and oriented, No focal neurological deficit observed. Psychiatric: Cooperative, appropriate mood & affect. Course Vital Signs: Vital signs: Vital Signs Temperature 98.2 F 03/06/25 10:15 Pulse Rate 80 03/06/25 10:15 Respiratory Rate 14 03/06/25 10:15 Blood Pressure 119/67 03/06/25 10:15 Pulse Oximetry 99 03/06/25 10:15 Oxygen Delivery Me thod Room Air 03/06/25 10:15 MDM - Extremity (Nontraumatic) Medical Decision Making Differential diagnosis: Patient does not have any other bleeding or bruising symptoms. This seems to be an appropriate bruise for what he was doing. Am not going to order any lab work at this time. We will try to treat his symptoms and if he needs some time off from work he can have that Assessment and plan: Forearm contusion - Discharged home - Discussed plan with patient. Answered any questions. - Evaluation and treatment of this problem were appropriate in the emergency setting. No radiology studies performed this visit Discharge Plan Discharge Patient Disposition: Home Clinical Impression: Contusion of forearm, right Condition: Stable Prescriptions: New tramadol 50 mg tablet 50 mg PO Q8H PRN (Reason: pain) Qty: 10 0RF diclofenac sodium 50 mg tablet,delayed release (DR/EC) 50 mg PO BID PRN (Reason: pain) Qty: 14 0RF No Action Lidocaine Viscous 2 % solution 1 applic mucous membrane DAILY PRN (Reason: pain) Qty: 100 0RF ondansetron 4 mg tablet,disintegrating 4 mg PO Q8H PRN (Reason: nausea and vomiting) Qty: 14 0RF Ativan 1 mg tablet 1 mg sublingual Q8H PRN (Reason: nausea and vomiting) Qty: 9 0RF Discharge Orders: Discharge ED (Routine); Ordered 03/06/25 Ordered By: Christie Goyal Referrals: Silvia Condon FNP [Primary Care Provider, Family Practice] Patient Instructions: Opioid Safety, Pain Management, Patient Portal & Gabe Instructions Print Language: [place] Coding Level of Care Code ED Mailer Apprentice for Darryl Faye
[2025-03-06 11:16] VITALS: BP 110/67; PULSE 71; RESP 16; O2SAT 98
== END 2025-03-06 11:18 | disposition home or self-care (01) ==
PROVIDERS: Emergency Provider Emergency Medicine; PCP Nurse Practitioner Family
DX: S50.11XA Contusion of right forearm, initial encounter (principal); X58.XXXA Exposure to other specified factors, initial encounter
CPT/HCPCS: 99283